=== PATIENT | male | born 1965 | race Asian ===

== ENCOUNTER 2021-08-14 08:54 | Day surgery (SDC) | payer OTHER ==
[~2021-08-14] VITALS: Ht 162.6 cm; Wt 62.5 kg
[~2021-08-14 08:54] MED LIST: HEPARIN SODIUM 1,000 UNIT in IV NORMAL SALINE 100ML 100 ML IRR ONE; HYDROmorphone 2 MG/ML INJ. IVP PRN; IV RINGERS,LACTATED 1000ML 1,000 ML IV SCH; MORPHINE SULFATE 2 MG/ML INJ. IVP PRN; PROCHLORPERAZINE 10 MG/2 ML VIAL. IVP PRN; fentaNYL PF VIAL 100 MCG/2 ML VIAL IVP PRN
[2021-08-14] MEDS ORDERED: ceFAZolin SODIUM IV Push 1 GM VIAL. IVP PRN (09:00)
[2021-08-14 09:26] VITALS: BP 139/92
[2021-08-14] MEDS ORDERED: SODI650T PO (09:35)
[2021-08-14] MEDS ORDERED: CARV25TA2 PO (09:37)
[2021-08-14] MEDS ORDERED: LOSA-73 PO (09:37)
[2021-08-14] MEDS ORDERED: ATOR40TA59 PO (09:38)
[2021-08-14] MEDS ORDERED: AMLO-186 PO (09:39)
[2021-08-14] MEDS ORDERED: IV NORMAL SALINE 1000ML BAG 1,000 ML IV SCH (09:45)
[2021-08-14] MEDS ORDERED: LIDOCAINE 2% PF 5 ML VIAL. ONE (10:16)
[2021-08-14] MEDS ORDERED: PROPOFOL 10 MG/ML (20ML) VIAL. IV ONE (10:16)
[2021-08-14] MEDS ORDERED: fentaNYL PF VIAL 100 MCG/2 ML VIAL ONE ×2 (10:16→12:44)
[2021-08-14] MEDS ORDERED: SEVOFLURANE 61 TO 120 MINUTES. IH ONE (10:16)
[2021-08-14] MEDS ORDERED: ROCURONIUM 50 MG/5 ML VIAL. ONE (10:16)
[2021-08-14] MEDS ORDERED: ONDANSETRON PF 4 MG/2 ML VIAL. ONE (10:16)
[2021-08-14] MEDS ORDERED: DEXAMETHASONE SOD PHOS 4 MG/ML VIAL ONE (10:16)
[2021-08-14] MEDS ORDERED: HEPARIN for IV BOLUS 10,000 UNIT/10 ML VIAL. ONE (10:44)
[2021-08-14] MEDS ORDERED: BUPIVACAINE-EPI 0.25%-1:200000 MPF 30 ML VIAL. ONE (11:15)
[2021-08-14] MEDS ORDERED: NEOSTIGMINE METHYLSULFATE 5 MG/5 ML SYRINGE. ONE (11:21)
[2021-08-14] MEDS ORDERED: GLYCOPYRROLATE 1 MG/5 ML VIAL. ONE (11:22)
--- NOTE | 2021-08-14 12:15 | PDOC4 ---
Operative Note Operative Note OPERATIVE NOTE: PREOPERATIVE DIAGNOSIS: Renal failure. POSTOPERATIVE DIAGNOSIS: Renal failure. PROCEDURE: Laparoscopic peritoneal dialysis catheter placement. SURGEON: Trung Henson MD ANESTHESIA: General. ESTIMATED BLOOD LOSS: 10 mL. SPECIMENS: None. DRAINS: None. COMPLICATIONS: None. INDICATIONS: The patient is [id number] male who was referred for placement of a peritoneal dialysis catheter due to progressive renal failure. The details and risks of surgery were discussed with the patient. The risks of surgery include bleeding, infection, visceral injury, pain, anesthetic risk, potential need for additional surgery or procedure. In addition, the patient is aware of the potential for catheter malfunction or dysfunction and possibility of needing revision, replacement, or removal of the catheter. They understand all this and would like to proceed. DESCRIPTION OF PROCEDURE: The patient was brought to the operating room and placed supine on the operating table. General anesthesia was performed. The abdomen was prepped with ChloraPrep and draped in a standard surgical manner. A small incision was made in the patient's left upper quadrant through which a visualized 5-mm trocar was inserted. A pneumoperitoneum was then created and the laparoscope was introduced. Initial inspection showed no significant adhesions or any other gross abnormalities. Using the placement template, the left abdomen was marked with a planned catheter exit site in the LLQ. A small incision was made to the left of the patient's midline at the marked location. An 8-mm trocar was inserted through this incision. The coiled portion of the lower catheter was then inserted into the pelvis under direct visualization. The cuff was positioned in the rectus musculature. The coiled portion rested well in the inferior mid pelvis. The pneumoperitoneum was then relieved. An incision was then made in the left lower quadrant at the planned exit site. The proximal portion of the catheter was tunnelled subcutaneously to the exit site. The proximal cuff remained in the subcutaneous tissue a few cm away from the exit site. The catheter was then assembled to IV tubing and tested by infusing a liter of saline. The saline passed easily into the abdomen and the bag was placed on the floor. Nearly all of the saline readily was retrieved with prompt flow. The abdominal cavity was then reinsufflated and the laparoscope was reintroduced showing no change in the catheter position and the cuff remained in the rectus. The pneumoperitoneum was relieved and the ports were removed. The catheter was then assembled to the connector tubing as per the dialysis instructions. All the incision sites were closed with 4-0 Monocryl. Steri- Strips and sterile dressing were then applied. The patient tolerated procedure well and was sent to the recovery room in stable condition. At the end of the case all counts were correct. TRUNG HENSON MD Aug 14, 2021 12:15
--- NOTE | 2021-08-14 12:31 | DISCH ---
DISCHARGE INSTRUCTIONS Condition on Discharge Condition on Discharge: Stable Activity After Discharge Activity Instructions for Disc: Other, see below (No lifting over 20 lbs X 2 weeks) Diet after Discharge Diet after Discharge: Regular Wound Incision Care Wound/Incision Care: Other, see below (keep dressings clean and dry) Follow-Up Follow up with: Dialysis center, call for appointment KIMANI HENSON MD Aug 14, 2021 12:31
[2021-08-14] MEDS ORDERED: HYDR-2761 PO (12:40)
[2021-08-14] MEDS: fentaNYL PF VIAL 100 MCG/2 ML VIAL IVP PRN ×2 (12:47→13:40)
[2021-08-14 13:32] VITALS: BP 113/74
[2021-08-14] MEDS ORDERED: HYDROcodone/APAP 5/325MG 1 TAB TABLET ONE (14:40)
[2021-08-14] MEDS ORDERED: HYDROcodone/APAP 5/325MG 1 TAB TABLET PO ONE (15:15)
== END 2021-08-14 15:30 | disposition home or self-care (01) ==
LOC: SURG 08:54
PROVIDERS: ATTEND Surgery
DX: N19 Unspecified kidney failure (principal); I10 Essential (primary) hypertension; E78.00 Pure hypercholesterolemia, unspecified; M19.90 Unspecified osteoarthritis, unspecified site; Z87.891 Personal history of nicotine dependence; Z79.899 Other long term (current) drug therapy; Z90.49 Acquired absence of other specified parts of digestive tract; Z98.890 Other specified postprocedural states
CPT/HCPCS: 49324; A4213; A4314; A4364; A4930; A6219; A6402; C1752; J0690; J1100; J1644; J2405; J2704; J2710; J3010; J3490; A4452